=== PATIENT | male | born 1945 | race Caucasian/White ===

== ENCOUNTER 2016-09-08 12:44 | Emergency (ER) | payer MEDICARE, OTHER ==
[~2016-09-08] VITALS: Wt 65.0 kg
[~2016-09-08 12:44] MED LIST: CLON1TAB3 PO; DOXA4TAB3 PO; LISI-313 PO; MIRT15TA5 PO; NAPR-688 PO; OMEP40CA6 PO
[2016-09-08 16:59] LABS: BASOPHILS % 0.5 % (0.0-2.0); EOSINOPHILS # 0.1 10^3/ul (0.0-0.5); EOSINOPHILS % 2.4 % (0.0-7.0); HEMATOCRIT 37.4 % (42.0-52.0); HEMOGLOBIN 12.6 g/dl (14.0-18.0); LYMPHOCYTES # 1.4 10^3/ul (0.8-2.9); LYMPHOCYTES % 24.9 % (15.0-51.0); MEAN CORPUSCULAR HEMOGLOBIN 27.6 pg (29.0-33.0); MEAN CORPUSCULAR HGB CONC 33.7 g/dl (32.0-37.0); MEAN CORPUSCULAR VOLUME 82.1 fl (82.0-101.0); MEAN PLATELET VOLUME 9.6 fl (7.4-10.4); MONOCYTE # 0.5 10^3/ul (0.3-0.9); NEUTROPHIL # 3.7 10^3/ul (1.6-7.5); NEUTROPHILS % 64.2 % (39.0-77.0); PLATELET COUNT 181 10^3/UL (140-440); RED BLOOD COUNT 4.56 10^6/ul (4.70-6.10); RED CELL DISTRIBUTION WIDTH 14.5 % (11.5-14.5); UNCORRECTED WBC 5.7 10^3/ul (4.8-10.8); WHITE BLOOD COUNT 5.7 10^3/ul (4.8-10.8)
[2016-09-08 17:04] LABS: CONDITION 1
[2016-09-08] MEDS ORDERED: ERGO500014 PO (17:05)
[2016-09-08 17:09] LABS: INR 0.93; PARTIAL THROMBOPLASTIN TIME 27.7 Sec (25.0-35.0); PROTIME 12.5 Sec (12.2-14.2)
[2016-09-08 17:10] LABS: ALBUMIN 4.2 g/dl (3.3-4.9)
[2016-09-08 17:11] LABS: CHLORIDE 103 mmol/L (97-110); POTASSIUM 3.9 mmol/L (3.5-5.1); SODIUM 142 mmol/L (135-144)
[2016-09-08 17:13] LABS: ALBUMIN/GLOBULIN RATIO 1.23; ALKALINE PHOSPHATASE 95 IU/L (42-121); ANION GAP 18 (8-16); ASPARTATE AMINO TRANSFERASE 19 IU/L (15-46); BILIRUBIN,INDIRECT 0.1 mg/dl (0-1.1); BILIRUBIN,TOTAL 0.1 mg/dl (0.2-1.3); CARBON DIOXIDE 25 mmol/L (21-31); CREATININE 1.03 mg/dl (0.61-1.24); TOTAL PROTEIN 7.6 g/dl (6.1-8.1)
[2016-09-08 17:14] LABS: ALANINE AMINOTRANSFERASE 28 IU/L (13-69); BLOOD UREA NITROGEN 20 mg/dl (7-20); CREATINE KINASE 41 IU/L (23-200); GLUCOSE 95 mg/dl (70-220)
[2016-09-08 17:28] LABS: ADD UMIC NO; URINE BILIRUBIN (Dip) NEGATIVE (NEGATIVE); URINE BLOOD (Dip) NEGATIVE (NEGATIVE); URINE COLOR LT. YELLOW (YELLOW); URINE GLUCOSE (Dip) NEGATIVE (NEGATIVE); URINE KETONES (Dip) NEGATIVE (NEGATIVE); URINE LEUKOCYTE ESTERASE (Dip) NEGATIVE (NEGATIVE); URINE NITRITE (Dip) NEGATIVE (NEGATIVE); URINE TOTAL PROTEIN (Dip) NEGATIVE (NEGATIVE); URINE UROBILINOGEN (Dip) 0.2 E.U./dL (0.1-1.0)
[2016-09-08 17:29] LABS: TROPONIN-I < 0.010 ng/ml (0.00-0.12)
--- NOTE | 2016-09-08 17:38 | RADRPT ---
PROCEDURE: XR Chest. CLINICAL INDICATION: Chest pain. TECHNIQUE: Single frontal view. COMPARISON: 08/10/2015. FINDINGS: There is mild left basilar atelectasis. The lungs are otherwise clear. The heart size is normal. There is no pleural effusion. There is no pneumothorax. IMPRESSION: 1. Mild left basilar atelectasis. 2. Otherwise normal chest x-ray. RPTAT: QQ .Jag Matson MD, MD Date Time Electronically viewed and signed by .Jag Matson MD, MD on 09/08/2016 17:38 .R/
--- NOTE | 2016-09-08 18:27 | RADRPT ---
PROCEDURE: CT abdomen and pelvis with. contrast. CLINICAL INDICATION: Left lower quadrant pain. TECHNIQUE: Noncontrast CT examination of the abdomen and pelvis, with axial, sagittal and coronal r eformatted images. CTDI: 13.35 mGy and DLP: 746.55 mGy-cm. COMPARISON: 03/14/2016. FINDINGS: CT abdomen: The lung bases are clear. The heart size is normal, without pericardial thickening or effusion. Mod erate to large hiatal hernia. The liver is normal in size and density without focal mass or intrahepatic biliary dilatation. The spleen is normal in size and homogeneous in density. The stomach is partially collapsed, but is ly ssly unremarkable. The pancreas as visualized is normal. The gallbladder and biliary tree are unre markable and there is no evidence for biliary dilatation. The adrenal glands are symmetric and norm al. Bilateral renal cysts, largest measuring up to about 23 mm in the left kidney. No renal calculu s or obstructive uropathy or mass lesion is seen. The aorta is of normal caliber. Aortic vascular calcifications are present. There is no retroperit [place] lymphadenopathy. The thompson hepatis region is clear. Nonspecific mild small bowel ileus. Scattered diverticulosis in the descending colon. Otherwise th e bowel and mesentery are unremarkable CT pelvis: The small bowel loops situated within the pelvis are unremarkable. 51 mm diameter prostate is mildl y enlarged, with mild mass effect the undersurface of the urinary bladder. The prostate cannot be f urther evaluated on the present series. The pelvic sidewalls and inguinal regions are clear. The s igmoid colon as extensive diverticulosis; and rectum is unremarkable. No mass, lymphadenopathy, or free fluid is seen. No acute inflammation is seen. New likely 2 appendicoliths. The appendix is o therwise unremarkable. The surrounding osseous structures are remarkable for mild degenerative spondylosis of the spine. N o osteolytic or osteoblastic lesion is detected. IMPRESSION: 1. Scattered diverticulosis in the sigmoid colon. 2. Mild prostate enlargement, and the prostate cannot be further evaluated. 3. Moderate to large hiatal hernia. 4. New appendicoliths, and otherwise, no CT evidence of acute appendicitis. 5. Mild small bowel ileus. RPTAT: UU Mireya Hines Physician Date Time Electronically viewed and signed by Mireya Hines Physician on 09/08/2016 18:27 RS/
[2016-09-08] MEDS ORDERED: ULT50 PO (18:35)
--- NOTE | 2016-09-08 18:35 | ERD ---
ER Documentation Chief Complaint Date/Time DATE: 09/08/16 TIME: 18:31 Chief Complaint LEFT CHEST PAIN AND ABDOMINAL PAIN FOR 2 WKS. HPI This is a 70-year-old male who presents to the emergent room for evaluation of body aches, body pain and abdominal pain for the past 2 weeks. The patient states that he is having pain all over his body. He states that his pain is worse in the abdomen and points to his left portion of his abdomen. States he has been having diarrhea and foul-smelling flatulence for the past 2 weeks. The patient is denying any active chest pain or palpitations at this time and came to the ER for evaluation. ROS All systems reviewed and are negative except as per history of present illness. Medications Home Meds Reported Medications Ergocalciferol* (Drisdol* (Vitamin D2)) 50,000 Unit Capsule, [address] UNIT PO Q7D, CAP 09/08/16 Clonazepam* (Clonazepam*) 1 Mg Tablet, 1 MG PO DAILY Y for ANXIETY, TAB 02/28/16 Mirtazapine* (Mirtazapine*) 15 Mg Tablet, 15 MG PO HS, TAB 08/10/15 Omeprazole* (Omeprazole*) 40 Mg Capsule.dr, 40 MG PO DAILY, CAP 08/10/15 Lisinopril* (Lisinopril*) 5 Mg Tablet, 5 MG PO DAILY, #30 TAB 08/10/15 Doxazosin Mesylate* (Doxazosin Mesylate*) 4 Mg Tablet, 4 MG PO HS, TAB 08/10/15 Discontinued Scripts Naproxen* (Naproxen*) 500 Mg Tablet, 500 MG PO BID Y for PAIN, #20 TAB Prov:ARIE JIMENEZ DO 03/14/16 Allergies Allergies: Coded Allergies: No Known Allergy (Unverified , 09/08/16) PMhx/Soc History of Surgery: No Anesthesia Reaction: No Hx Neurological Disorder: No Hx Respiratory Disorders: No Hx Cardiac Disorders: No Hx Psychiatric Problems: No Hx Miscellaneous Medical Probl: Yes (hx of abd pain ) Hx Alcohol Use: No Hx Substance Use: No Hx Tobacco Use: Yes (2-3 A DAY) Smoking Status: Never smoker Physical Exam Vitals Vital Signs Date Time Temp Pulse Resp B/P Pulse Ox O2 Delivery O2 Flow Rate FiO2 09/08/16 12:58 98.6 85 20 150/83 98 Physical Exam INITIAL VITAL SIGNS: Reviewed by me GENERAL: The patient is well developed and appropriate for usual state of health in no apparent distress HEENT: Pupils equal, round, and reactive to light. EOMI. There is no scleral icterus. NECK: C-spine is soft and supple, there is no meningismus. There is no cervical lymphadenopathy. LUNGS: Clear to auscultation bilaterally. There are no rales, wheezes or rhonchi. HEART: Regular rate and rhythm, no murmurs, clicks, rubs or gallops. ABDOMEN: Tender to palpation in left lower quadrant, no suprapubic tenderness, there are bowel sounds in all four quadrants. No rebound or guarding. EXTREMITIES: There is no peripheral cyanosis or edema. No focal swelling or erythema. NEUROLOGICAL: The patient moves all four extremities with 5/5 strength. Cranial nerves II - XII are intact. Normal gait. Alert and oriented SKIN: There is no apparent rash or petechiae. HEME/LYMPHATIC: There is no evidence of excessive bruising or lymphedema. PSYCHIATRIC: The patient does not appear anxious or depressed. Result Diagram: 09/08/16 1645 09/08/16 1645 Results 24 hrs Laboratory Tests Test 09/08/16 16:45 09/08/16 17:15 Activated Partial Thromboplast Time 27.7Sec Alanine Aminotransferase (ALT/SGPT) 28IU/L Albumin 4.2g/dl Albumin/Globulin Ratio 1.23 Alkaline Phosphatase 95IU/L Anion Gap 18 Aspartate Amino Transf (AST/SGOT) 19IU/L Basophils # 0.010^3/ul Basophils % 0.5% Blood Morphology Comment Blood Urea Nitrogen 20mg/dl Calcium Level 9.0mg/dl Carbon Dioxide Level 25mmol/L Chloride Level 103mmol/L Creatine Kinase 41IU/L Creatinine 1.03mg/dl Direct Bilirubin 0.00mg/dl Eosinophils # 0.110^3/ul Eosinophils % 2.4% Globulin 3.40g/dl Glucose Level 95mg/dl Hematocrit 37.4% Hemoglobin 12.6g/dl INR International Normalized Ratio 0.93 Indirect Bilirubin 0.1mg/dl Lipase 60U/L Lymphocytes # 1.410^3/ul Lymphocytes % 24.9% Mean Corpuscular Hemoglobin 27.6pg Mean Corpuscular Hemoglobin Concent 33.7g/dl Mean Corpuscular Volume 82.1fl Mean Platelet Volume 9.6fl Monocytes # 0.510^3/ul Monocytes % 8.0% Neutrophils # 3.710^3/ul Neutrophils % 64.2% Nucleated Red Blood Cells # 0.010^3/ul Nucleated Red Blood Cells % 0.0/100WBC Platelet Count 08947^3/UL Potassium Level 3.9mmol/L Prothrombin Time 12.5Sec Prothrombin Time Ratio 1.0 Red Blood Count 4.5610^6/ul Red Cell Distribution Width 14.5% Sodium Level 142mmol/L Total Bilirubin 0.1mg/dl Total Protein 7.6g/dl Troponin I < 0.010ng/ml White Blood Count 5.710^3/ul Urine Bilirubin NEGATIVE Urine Clarity CLEAR Urine Color LT. YELLOW Urine Glucose NEGATIVE% Urine Hemoglobin NEGATIVE Urine Ketones NEGATIVE Urine Leukocyte Esterase NEGATIVE Urine Nitrite NEGATIVE Urine Specific [place] 1.015 Urine Total Protein NEGATIVE Urine Urobilinogen 0.2 E.U./dL Urine pH 6.0 Procedures/MDM EKG: Rate/Rhythm: [Normal Sinus Rhythm] QRS, ST, T-waves: [No changes consistent w/ acute ischemia] Impression: [No evidence of ischemia or arrhythmia] Chest X-ray 1V Interpreted by me: Soft Tissue: No acute abnormalities Bones: No acute abnormalities Mediastinum/Cardiac Silhouette/Lungs: [No acute abnormalities] CT abdomen pelvis without: 1. Scattered diverticulosis in the sigmoid colon. 2. Mild prostate enlargement, and the prostate cannot be further evaluated. 3. Moderate to large hiatal hernia. 4. New appendicoliths, and otherwise, no CT evidence of acute appendicitis. 5. Mild small bowel ileus. This is a 70-year-old male presents to the emergency room for evaluation of total body aches, however when I question him further in detail about his pain he localizes the pain to his stomach. He did have tenderness to palpation in the left lower quadrant. Lab work was obtained including a troponin which was normal, EKG which is nonischemic. X-rays also normal, and I did obtain a CT of the abdomen and pelvis to rule out diverticulitis. This patient does have diverticulosis however no evidence of diverticulitis. He is passing gas, no vomiting, and states that he is having crampy pain in his left lower quadrant. His CT does show an enlarged prostate and he states that he is being seen by urologist next week for further evaluation. This patient will be given a prescription for tramadol for abdominal pain, and will be discharged home at this time with a referral for GI follow-up for possible colonoscopy. Differential diagnoses entertained was broad with potential high acuity. Patient has been evaluated for appendicitis, cholecystitis, and other high risk medical and surgical causes of abdominal pain. Ultimately the patient's evaluation is nondiagnostic. Based on the patient's lack of risk factors, as well as the patient's clinical, laboratory, and imaging data, the patient appears to be low risk for these high risk causes of abdominal pain. This patient does have mild ileus however he has no signs of obstruction and is passing gas and not vomiting. Departure Diagnosis: Primary Impression: Abdominal pain Additional Impressions: Enlarged prostate Normocytic anemia Condition: Stable KRISTIN ISRAEL DO Sep 08, 2016 18:35
[2016-09-08 18:42] VITALS: BP 148/68; PULSE 66; RESP 18; TEMP 98
== END 2016-09-08 18:49 | disposition home or self-care (01) ==
LOC: E/R 12:44
DX: R10.32 Left lower quadrant pain (principal); D64.9 Anemia, unspecified; N40.0 Benign prostatic hyperplasia without lower urinary tract symptoms; Z87.891 Personal history of nicotine dependence
CPT/HCPCS: 36415; 71010; 74176; 80053; 81003; 82550; 82553; 83690; 84484; 85025; 85610; 85730; 93005

== ENCOUNTER 2017-05-01 09:29 | Emergency (ER) | payer MEDICARE, OTHER ==
[~2017-05-01] VITALS: Ht 167.6 cm; Wt 76.5 kg
[~2017-05-01 09:29] MED LIST changes: +ERGO500014 PO; -NAPR-688 PO; +TRAM50TA2 PO
[2017-05-01 09:40] VITALS: Ht 167.6 cm; Wt 76.5 kg
--- NOTE | 2017-05-01 11:05 | ERA ---
ER Documentation Chief Complaint Date/Time DATE: 05/01/17 TIME: 11:00 Chief Complaint Complains of generalized pain and ache HPI 71-year-old male presenting with a chief complaint of pain. Patient states that there is pain everywhere. Worse over the past 2-3 weeks. Worse in the mornings. Is described as stiffness. Gets better throughout the day. Has taken Tylenol and ibuprofen without relief. States he has high blood pressure but no other medical conditions. Patient has a plethora of medications including bupropion, doxepin, clonazepam, amlodipine, and simvastatin. Patient states that he is active and works out, but I have little reason to suspect that this is accurate. Patient has no other complaints. Denies any other associated manifestations. The nursing notes have been reviewed and are consistent with a history given. ROS All systems reviewed and are negative except as per history of present illness. Medications Home Meds Active Scripts Tramadol HCl (Tramadol HCl) 50 Mg Tablet, 50 MG PO Q6, #15 TAB Prov:KRISTIN ISRAEL DO 09/08/16 Reported Medications Ergocalciferol* (Drisdol* (Vitamin D2)) 50,000 Unit Capsule, 87343 UNIT PO Q7D, CAP 09/08/16 Clonazepam* (Clonazepam*) 1 Mg Tablet, 1 MG PO DAILY Y for ANXIETY, TAB 02/28/16 Mirtazapine* (Mirtazapine*) 15 Mg Tablet, 15 MG PO HS, TAB 08/10/15 Omeprazole* (Omeprazole*) 40 Mg Capsule.dr, 40 MG PO DAILY, CAP 08/10/15 Lisinopril* (Lisinopril*) 5 Mg Tablet, 5 MG PO DAILY, #30 TAB 08/10/15 Doxazosin Mesylate* (Doxazosin Mesylate*) 4 Mg Tablet, 4 MG PO HS, TAB 08/10/15 Allergies Allergies: Coded Allergies: No Known Allergy (Unverified , 09/08/16) PMhx/Soc History of Surgery: No Anesthesia Reaction: No Hx Neurological Disorder: No Hx Respiratory Disorders: No Hx Cardiac Disorders: No Hx Psychiatric Problems: No Hx Miscellaneous Medical Probl: Yes (hx of abd pain ) Hx Alcohol Use: No Hx Substance Use: No Hx Tobacco Use: Yes (2-3 A DAY) Smoking Status: Current some day smoker Physical Exam Vitals Vital Signs Date Time Temp Pulse Resp B/P Pulse Ox O2 Delivery O2 Flow Rate FiO2 05/01/17 09:40 98.6 83 20 108/73 98 Physical Exam Const: Well-appearing. No acute distress. Head: Normocephalic, Atraumatic. Eyes: Non-injected; No discharge. EOMI and NAYELI bilaterally. Ears: Normal External Ears, EACs clear, TM normal bilaterally without erythema. Nose: Normal external nose; no discharge, or sinus tenderness. Oral: No oral edema visualized. Mucous membranes moist and pink. Neck: No cervical lymphadenopathy, or masses palpated. Supple ~ No meningismus. Pulm: Good air movement in upper and lower respiratory tracts. Clear to auscultation bilaterally. No dyspnea or stridor. Cardio: Regular rate and rhythm; No murmurs, gallops or rubs auscultated. Radial pulses 2+ bilaterally. No cyanosis noted. Capillary refill less than 2 seconds. Abd: Normal bowel sounds. Soft, non tender, non distended. MS: Normal motor strength, normal tone with gross examination. Skin: No petechiae or rashes. Good turgor. Back: No midline, flank or CVA tenderness. Ext: No edema. Normal movement of all extremities grossly observed. No stiffness with passive range of motion. Mild Nu's nodules, with minor ulnar deviation of fingers most consistent with rheumatoid arthritis. Neur: Neurovascularly intact bilaterally. Psych: Normal Mood and Affect. Procedures/MDM This is a 71-year-old male presenting with a chief complaint of pain as described in history and physical examination. Signs and symptoms are most consistent with rheumatoid arthritis. At this time I have little suspicion for pain secondary to trauma, infection, or other acute pathologies. I have spoke with the patient regarding their condition and future management; including giving patient referral list of clinics for chronic management. Refused pain medications in the ED. They have verbally responded that they understand their status and treatment plan. The patients vitals are stable, and their current condition is appropriate for discharge. The patient will be given discharge instructions with return precautions. Departure Diagnosis: Primary Impression: Pain Condition: Stable Patient Instructions: What Is Arthritis?, Rheumatoid Arthritis Referrals: LETICIA GUIDRY MD (PCP) Additional Instructions: Follow up with your PCP within the next 1-3 days for a more thorough evaluation and a possible referral to a specialist. Return the the emergency department immediately if symptoms worsen or change. If you have any questions regarding medications, ask your pharmacist or us before you leave. If any adverse reactions occur while taking your medications, discontinue the treatment and return to the emergency department immediately. Take your medications as directed, and complete the entire course of treatment. APRYL GARCIA PA-C May 01, 2017 11:05
== END 2017-05-01 11:13 | disposition home or self-care (01) ==
LOC: FTE 09:29
DX: R52 Pain, unspecified (principal); F17.210 Nicotine dependence, cigarettes, uncomplicated
CPT/HCPCS: 99283